=== PATIENT | male | born 1980 | race African-American/Black ===

== ENCOUNTER 2017-03-26 12:27 | Inpatient (IN) ==
[2017-03-26 13:05] LABS: MANUAL DIFF NEEDED? NO
[2017-03-26 13:10] LABS: BASO% 0.4 % (0.0-0.8); HEMATOCRIT 46.2 % (42.0-52.0); HEMOGLOBIN 16.3 g/dL (14.0-18.0); IMM GRAN# 0.02 X1000 (0.0-0.04); IMM GRAN% 0.3 % (0.0-0.5); LYMPH# 0.83 X1000 (1.2-3.4); LYMPH% 11.5 % (20.5-51.1); MCH 29.3 PG (27-31); MCHC 35.3 g/dL (33-37); MCV 82.9 FL (81-99); MONO# 0.33 X1000 (0.11-0.59); MONO% 4.6 % (1.7-9.3); MPV 10.1 FL (7.4-10.4); NEUT% 83.2 % (42.2-75.2); PLT 325 X1000 (130-400); RBC 5.57 XMIL (4.7-6.1)
[2017-03-26] MEDS ORDERED: LOPRESSOR IV ONE (13:14)
--- NOTE | 2017-03-26 13:18 | PROVIDER DOCUMENTATION ---
HPI-General Adult - General Chief Complaint: General Adult Stated Complaint: DIZZINESS/HIGH BP/BLOOD SUGAR Time Seen by Provider: 03/26/17 12:57 Source: patient Allergies/Adverse Reactions: Patient Allergies Allergy/AdvReac Type Severity Reaction Status Date / Time No Known Allergies Allergy Verified 05/17/16 18:32 Home Medications: Home Medication List Medication Instructions Recorded Confirmed Last Taken Type Metformin [Glucophage] 500 mg PO BID 08/07/16 08/07/16 Unknown History Amlodipine Besylate [Norvasc] 10 mg PO DAILY #90 tablet 10/29/16 Unknown Rx Metoprolol [Lopressor] 50 mg PO DAILY #90 tablet 10/29/16 Unknown Rx Amlodipine Besylate [Norvasc] 10 mg PO DAILY #30 tablet 01/14/17 Unknown Rx Colchicine [Colcrys] 0.6 mg PO DAILY #15 tablet 01/14/17 Unknown Rx Metoprolol [Lopressor] 50 mg PO DAILY #30 tablet 01/14/17 Unknown Rx - History of Present Illness -Gen Adult Nature of Presenting Problems: Pt. is 36 yom that presents with c/o burning urination and abd pain. Pt. reports symptoms for several days and is more interested in talking about his bad luck than what is wrong with him. Pt.. denies any other symptoms at time of exam. Location of Pain/Injury: reports: abdomen, genitalia. denies: head, face, mouth , neck, chest, upper extremity, hand(s), back, pelvis, lower extremity, feet, upper body, lower body, generalized Pain Radiation: reports: no radiation Quality of Pain: reports: burning. denies: aching, cramping, dull, fullness, indigestion, pressure, sharp, stabbing, tearing, throbbing, tightness Severity: reports: mild. denies: moderate, severe Onset/Duration: reports: gradual, 3 days ago Timing: reports: still present. denies: improving, gone now, resolved prior to arrival, intermittent, constant, changing over time, getting worse Context/Activities at Onset: reports: none. denies: recent emotional stress, recent physical stress, recent trauma history, possible bad food, cold exposure , out of country travel Modifying Factors: improves with: nothing Associated Symptoms: reports: genitourinary problems. denies: anxiety, arm pain , back/neck pain, chest pain, constipation, cough, diaphoresis, diarrhea, dizziness, EENT symptoms, fatigue, fever/chills, headaches, heartburn, joint pain, loss of appetite, malaise, muscle aches, sinus congestion/drainage, nausea , rash, seizure, shortness of breath, sensory/motor loss, pain with inspiration , swelling/mass in abdomen, syncope, vomiting, weakness, trouble walking Similar Symptoms Previously?: Yes Recently seen or treated by another doctor?: No Review of Systems - Adult - REVIEW OF SYSTEMS - ADULT Constitutional: reports: see HPI. denies: chills, fever, fatique Eyes: reports: see HPI. denies: discharge, blurred vision, eye pain Ears, Nose, Mouth & Throat: reports: see HPI. denies: ear pain, hearing loss, sinus problem, mouth/dental pain, throat swelling Cardiovascular: reports: see HPI. denies: irregular heart rate, palpitations, syncope Respiratory: reports: see HPI. denies: cough, dyspnea on exertion, pleurisy, shortness of breath, wheezing Gastrointestinal: reports: see HPI. denies: abdominal pain, hematemesis, diarrhea, nausea, vomiting Genitourinary: reports: see HPI. denies: dysuria, hematuria, hesitency, urgency Musculoskeletal: reports: see HPI. denies: bone pain, back pain, joint pain, muscle aches, neck pain Integumentary: reports: see HPI. denies: hives, itching, rash, skin thickening Neurological: reports: see HPI. denies: ataxia, headache/migraines, numbness, seizure, tremors Psychiatric: reports: see HPI. denies: anxiety, depression, emotional problems , insomnia, panic attacks, suicidal thoughts Past History - Adult - PAST MEDICAL HISTORY-ADULT Review of Records: reports: Old Records Reviewed, Nursing Assessment Review, Medications Reviewed, Social history reviewed & non-contributory. Major Childhood Illnesses: reports: denies history Cardiovascular: reports: HTN Respiratory: reports: denies history Gastrointestinal: reports: denies history Obstetrical/Gynecological: reports: denies history Genitourinary: reports: denies history Musculoskeletal: reports: denies history Neurological: reports: denies history Endocrine/Immune: reports: Diabetes Other Conditions: reports: cataract/glaucoma (right eye), eye problems/injury - PRIOR SURGERIES/PROCEDURES Surgical/Procedure History: reports: joint replacement - PRIOR HOSPITALIZATIONS Prior Hospitalizations: reports: for other non-related - IMMUNIZATION STATUS Childhood Immunizations: See Nurse Assessment Flu Vaccine: See Nurse Assessment - FAMILY HISTORY Family History: reviewed, not pertinent - SOCIAL HISTORY Smoking: cigarettes, greater than 1 pack/day Provider spent 3-5 mins advising pt. on dangers of tobacco.: Discussed the need to stop smoking. Physical Exam-General - PHYSICAL EXAM-ADULT Initial Vital Signs Reviewed: Yes - CONSTITUTIONAL General Appearance: alert, mild distress, obese, anxious. negative: thin, lethargic, slow to respond, obtunded, combative - EYES Eyes: PERRL/EOMI, pink conjunctivae. negative: conjuctival exudate, scleral icterus, subconjunctival hemorrhage - HEAD, EARS, NOSE, MOUTH & THROAT HENMT: normocephalic/atraumatic, moist mucous membranes. negative: angioedema, frontal tenderness, maxillary tenderness - NECK Neck: non-tender, full range of motion, supple, normal inspection. negative: lymphadenopathy, trachial deviation, thyromegaly - RESPIRATORY Respiratory: lungs clear, normal breath sounds, increased rate. negative: crackles, rales, rhonchi, stridor, wheezing - CARDIOVASCULAR Cardiovascular: regular rate, rhythm, no edema, no JVD, no murmur, tachycardia. negative: extra beats, friction rub, irregularly irregular - GASTROINTESTINAL (ABDOMEN) Abdominal Exam: normal bowel sounds, non tender, soft. negative: distended, guarding, rigid, rebound, tenderness, hernia, mass - LYMPHATIC Lymphatic: no adenopathy. negative: axilla node tender, cervical node tenderness - MUSCULOSKELETAL Back Exam: normal inspection, no CVA tenderness, no vertebral tenderness. negative: ecchymosis, swelling, vertebral tenderness Extremity: normal range of motion, non-tender, normal gait, normal inspection. negative: deformity, erythema, inflammation, swelling, tenderness Peripheral Pulses: radial (R): 2+, radial (L): 2+ - SKIN Integumentary: normal color, normal turgor, warm/dry. negative: cyanosis, diaphoresis, ecchymosis, erythema, jaundice, mottled, pallor, petechiae, purpura , rash, swelling, tenderness - NEUROLOGIC Neurologic: grossly normal, no motor/sensory deficits. negative: aphasia, facial droop, focal weakness, motor weakness, sensory deficit - PSYCHIATRIC Psych/Mental Status: normal mood/affect, normal thought content, normal thought process, oriented x 3, anxious. negative: paranoid, tearful Progress - PLAN OF CARE/RESULTS Progress/Plan/Lab Results: Vital Signs - 8 hr 03/26/17 12:33 Temperature 97.9 F Pulse Rate 119 H Respiratory Rate 28 H O2 Sat by Pulse Oximetry 100 Laboratory Results - last 24 hr 03/26/17 12:55 WBC 7.24 RBC 5.57 Hgb 16.3 Hct 46.2 MCV 82.9 MCH 29.3 MCHC 35.3 RDW Std Deviation 13.6 Plt Count 325 MPV 10.1 Immature Gran % (Auto) 0.3 Neut % (Auto) 83.2 H Lymph % (Auto) 11.5 L [place] % (Auto) 4.6 Eos % (Auto) 0.0 Baso % (Auto) 0.4 Immature Gran # (Auto) 0.02 Neut # (Auto) 6.03 Lymph # (Auto) 0.83 L [place] # (Auto) 0.33 Eos # (Auto) 0.00 Baso # (Auto) 0.03 Orders Category Date Time Status Saline Loc NOW Care 03/26/17 12:58 Active CBC WITH ELECTRONIC DIFF [HEME] Stat Lab 03/26/17 12:55 Completed CK PROFILE [SP CHEM] Stat Lab 03/26/17 12:55 Received COMPREHENSIVE METABOLIC PANEL [CHEM] Stat Lab 03/26/17 12:[address] [URINALYSIS] Stat Lab 03/26/17 12:58 Ordered Discussed results and plan with Dr. Ayers and she agrees with plan Discussed results and plan of care with patient. Patient agrees with plan and verbalizes understanding. Result Diagrams: 03/26/17 12:55 03/26/17 12:55 - CONSULTS/PCP/HOSPITALIST Notification #1 *Consult/PCP/Hospitalist*: Dr. Ryamond Time Discussed: 17:33 Reason/Comments: Admission Consult Disposition: Admit (Admit to ICU) Departure - Departure Time of Disposition Decision: 17:35 DIAGNOSIS: Hypertension Qualifiers: Hypertension type: essential hypertension Qualified Code(s): I10 - Essential ( primary) hypertension Disposition: ADMITTED INPATIENT 09 Certified Medical Emergency: Emergent Condition: Serious Referrals and Follow-Ups: None,PCP [Primary Care Provider] - - Critical Care Note This patient required my direct personal management.: No Attestation - Physician/ GEOVANNI Attestation Patient care was provided by Advanced Practice Provider:: Yes Advanced Practice Provider:: Savanah Wallis Advanced Practice Provider documentation review:: The Mid-level provider documentation, treatment plan and medical decision making was reviewed by the physician who agrees with all treatment and medical decision making by the MLP.
[2017-03-26 13:30] LABS: AGAP 18; ALBUMIN 4.8 g/dL (3.5-5.0); ALKALINE PHOSPHATASE 105 U/L (32-122); BUN 10 mg/dL (8-22); CALCIUM 10.3 mg/dL (8.8-10.2); CHLORIDE 99 mmol/L (98-107); COSMO 278; GOT 26 U/L (10-34); GPT 16 U/L (10-44); POTASSIUM 3.4 mmol/L (3.5-5.1); SODIUM 138 mmol/L (136-145); TCO2 21 mmol/L (25-35)
[2017-03-26 13:31] LABS: CK PROFILE 424 U/L (24-204)
[2017-03-26 13:44] LABS: CK INDEX 1.4 (0.0-2.5); CK-MB 5.74 ng/mL (0.0-5.0)
[2017-03-26 14:12] LABS: URINE SOURCE CLEAN CATCH
[2017-03-26 14:23] LABS: BILIRUBIN URINE NEGATIVE (NEGATIVE); BLOOD URINE 2+ (NEGATIVE); CLARITY CLEAR (CLEAR); COLOR YELLOW; GLUCOSE URINE NEGATIVE (NEGATIVE); LEUKOCYTES URINE 2+ (NEGATIVE); NITRITE URINE NEGATIVE (NEGATIVE); PH URINE 6.5; SP GRAVITY URINE 1.015; URINE MICROSCOPIC NEEDED? YES; UROBILINOGEN URINE NORMAL
[2017-03-26 14:24] LABS: URINE EPITHELIAL CELLS >10 /HPF (<10); URINE WBC 20-40 /HPF (<10)
[2017-03-26] MEDS ORDERED: ROCEPHIN 1 GM/NS 1 GM/50 ML IVPB IV ONE (14:44)
[2017-03-26] MEDS ORDERED: APRESOLINE IV ONE (14:52)
[2017-03-26] MEDS ORDERED: LABETALOL IV ONE ×2 (15:34→16:40)
[2017-03-26] MEDS ORDERED: ATIVAN IV ONE (17:32)
[2017-03-26] MEDS ORDERED: LABETALOL 200 MG in NS 160 ML IV SCH (17:45)
[2017-03-26] MEDS ORDERED: NIPRIDE 50 MG in D5W 250 ML IV SCH (19:32)
[2017-03-26] MEDS ORDERED: TYLENOL PO PRN (19:57)
[2017-03-26] MEDS ORDERED: ZOFRAN IV PRN (19:57)
[2017-03-26] MEDS ORDERED: ROCEPHIN 1 GM/NS 1 GM/50 ML IVPB IV SCH (20:00)
[2017-03-26] MEDS ORDERED: PRINIVIL PO SCH (21:00)
[2017-03-26] MEDS ORDERED: APRESOLINE PO SCH (21:00)
[2017-03-26] MEDS ORDERED: ATIVAN IV PRN (21:31)
[2017-03-26 23:48] VITALS: BP 146/70
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
== END 2017-03-27 00:45 | disposition left against medical advice (07) ==
LOC: P.ED 12:27 → P.ICU 18:09
PROVIDERS: ATTEND Family Medicine